=== PATIENT | male | born 1955 | race Caucasian/White ===

== ENCOUNTER 2024-08-31 17:16 | Inpatient (IN) | payer MEDICARE, MEDICAID ==
[~2024-08-31] VITALS: Ht 160 cm; Wt 75.7 kg
[~2024-08-31 17:16] MED LIST: ASPI-1406 PO; ATOR-2 PO; CHOL2000 PO; CLOP75TA33 PO; DICL100G58 TP; GLIP10TA17; HYDR25TA78 PO; ISOS60TA76 PO; OMEP20CA14 PO; PIOG30TA70; TAMS-11 PO
[2024-08-31] MEDS: FUROSEMIDE 40MG/4ML VIAL IV ONE (18:45)
[2024-08-31 19:30] LABS: BASOPHILS % 0.5 % (0.0-2.0); EOSINOPHILS % 0.5 % (0.0-5.0); HEMATOCRIT. 33.9 % (42.0-52.0); HEMOGLOBIN. 11.3 g/dL (14.0-18.0); LYMPHOCYTES % 14.2 % (20.0-50.0); MEAN CORPUSCULAR HEMOGLOBIN 30.7 pg (28.0-32.0); MEAN CORPUSCULAR HGB CONC 33.4 g/dL (31.0-37.0); MEAN PLATELET VOLUME 7.9 fl (7.4-10.4); MONOCYTES % 6.6 % (2.0-8.0); NEUTROPHILS % 78.2 % (40.0-76.0); PLATELET 211 x1000/uL (130-400); RED BLOOD CELL COUNT 3.69 mill/uL (4.7-6.1); RED CELL DISTRIBUTION WIDTH 12.9 % (11.6-14.6); WHITE BLOOD COUNT 7.5 x1000/uL (4.5-11.0)
[2024-08-31 19:40] LABS: CARBON DIOXIDE 23 mEq/L (21-32); CHLORIDE 101 mEq/L (98-107); POTASSIUM 4.3 mEq/L (3.5-5.1); SODIUM 134 mEq/L (136-145)
[2024-08-31 19:41] LABS: CALCIUM 8.9 mg/dL (8.7-10.4)
[2024-08-31 19:45] LABS: CREATININE 1.2 mg/dL (0.6-1.3)
[2024-08-31 19:46] LABS: GLUCOSE 173 mg/dL (70-105); TROPONIN I HIGH SENSITIVITY 11 ng/L (3.0-53); UREA NITROGEN BLOOD 17 mg/dL (9-23)
[2024-08-31 19:47] LABS: INR 1.2; PROTHROMBIN TIME 12.5 sec (9.6-11.0)
[2024-08-31 22:00] VITALS: BP 149/78; PULSE 97; RESP 20; TEMP 36.8
[2024-08-31] MEDS ORDERED: METF-416 PO (22:21)
[2024-08-31] MEDS ORDERED: DEXTROSE 50% WATER 50ML SYRINGE IV PRN (23:15)
[2024-09-01] VITALS: BP_SYST 117; BP_SYST 119; BP_DIAS 65; BP_DIAS 69; PULSE 84; PULSE 89; RESP 16; RESP 19; TEMP 36.2; TEMP 36.4; O2SAT 95; O2SAT 96
[2024-09-01] MEDS: BLOOD SUGAR DIAGNOSTIC STRIP TEST SCH (05:11)
[2024-09-01] MEDS: INSULIN LISPRO 100 UNITS/ML SUBCUT SCH (05:12)
[2024-09-01 06:37] LABS: BASOPHILS % 0.2 % (0.0-2.0); HEMATOCRIT. 29.8 % (42.0-52.0); HEMOGLOBIN. 10.2 g/dL (14.0-18.0); LYMPHOCYTES % 23.2 % (20.0-50.0); MEAN CORPUSCULAR HEMOGLOBIN 31.1 pg (28.0-32.0); MEAN CORPUSCULAR HGB CONC 34.4 g/dL (31.0-37.0); MEAN CORPUSCULAR VOLUME 90.6 fL (80.0-94.0); MEAN PLATELET VOLUME 8.1 fl (7.4-10.4); MONOCYTES % 7.9 % (2.0-8.0); NEUTROPHILS % 67.7 % (40.0-76.0); PLATELET 193 x1000/uL (130-400); RED BLOOD CELL COUNT 3.29 mill/uL (4.7-6.1); RED CELL DISTRIBUTION WIDTH 12.7 % (11.6-14.6); WHITE BLOOD COUNT 7.6 x1000/uL (4.5-11.0)
[2024-09-01 06:49] LABS: CARBON DIOXIDE 23 mEq/L (21-32); CHLORIDE 102 mEq/L (98-107); POTASSIUM 3.7 mEq/L (3.5-5.1); SODIUM 137 mEq/L (136-145)
[2024-09-01 06:50] LABS: CALCIUM 8.8 mg/dL (8.7-10.4)
[2024-09-01 06:54] LABS: CREATININE 1.1 mg/dL (0.6-1.3)
[2024-09-01 06:55] LABS: GLUCOSE 82 mg/dL (70-105); UREA NITROGEN BLOOD 17 mg/dL (9-23)
[2024-09-01 08:35] VITALS: BP 155/65; PULSE 85; RESP 17; TEMP 36.9; O2SAT 94
[2024-09-01 08:48] LABS: INR 1.2; PROTHROMBIN TIME 12.9 sec (9.6-11.0)
[2024-09-01] MEDS: ISOSORBIDE MONONITRATE 60MG TABLET SR 24HR PO SCH (09:11)
[2024-09-01] MEDS: PANTOPRAZOLE 40MG DR TABLET PO SCH (09:11)
[2024-09-01] MEDS: TAMSULOSIN HCL 0.4MG SR CAPSULE PO SCH (09:11)
[2024-09-01 12:36] VITALS: BP 130/69; PULSE 88; RESP 18; TEMP 37.2; O2SAT 96
[2024-09-01] MEDS: HYDRALAZINE HCL 25MG TABLET PO SCH (12:39)
[2024-09-01 16:00] VITALS: BP 133/66; PULSE 97; RESP 18; TEMP 37.7; O2SAT 94
[2024-09-01] MEDS ORDERED: IPRATROPIUM/ALBUTEROL 0.5-3(2.5)MG/3ML NEB HHN PRN (17:45)
[2024-09-01 20:00] VITALS: BP 149/61; PULSE 96; RESP 19; TEMP 36.2; O2SAT 96
[2024-09-01] MEDS: ATORVASTATIN CALCIUM 40MG TABLET PO SCH (21:06)
[2024-09-01] MEDS: HYDROCODONE/ACETAMINOPHEN 5/325MG TABLET PO PRN (21:15)
[2024-09-02] VITALS: BP 115/63; PULSE 85; RESP 20; TEMP 36.2; O2SAT 96
[2024-09-02 04:00] VITALS: BP 125/69; PULSE 86; RESP 16; TEMP 36.1; O2SAT 94
[2024-09-02 07:03] LABS: BASOPHILS % 0.3 % (0.0-2.0); EOSINOPHILS % 1.2 % (0.0-5.0); HEMATOCRIT. 29.5 % (42.0-52.0); HEMOGLOBIN. 10.1 g/dL (14.0-18.0); LYMPHOCYTES % 19.7 % (20.0-50.0); MEAN CORPUSCULAR HEMOGLOBIN 31.3 pg (28.0-32.0); MEAN CORPUSCULAR HGB CONC 34.2 g/dL (31.0-37.0); MEAN CORPUSCULAR VOLUME 91.6 fL (80.0-94.0); MONOCYTES % 7.5 % (2.0-8.0); NEUTROPHILS % 71.3 % (40.0-76.0); PLATELET 190 x1000/uL (130-400); RED BLOOD CELL COUNT 3.22 mill/uL (4.7-6.1); RED CELL DISTRIBUTION WIDTH 12.4 % (11.6-14.6); WHITE BLOOD COUNT 7.6 x1000/uL (4.5-11.0)
[2024-09-02 07:21] LABS: POTASSIUM 3.8 mEq/L (3.5-5.1)
[2024-09-02 07:22] LABS: CALCIUM 8.9 mg/dL (8.7-10.4)
[2024-09-02 07:26] LABS: CREATININE 1.2 mg/dL (0.6-1.3)
[2024-09-02 08:00] VITALS: BP 130/55; PULSE 89; RESP 18; TEMP 36.2; O2SAT 97
[2024-09-02 12:00] VITALS: BP 114/57; PULSE 89; RESP 14; TEMP 37.5; O2SAT 95
[2024-09-02] MEDS: GUAIFENESIN 200MG/10ML SUGAR FREE UDC PO PRN (13:27)
[2024-09-02 16:00] VITALS: PULSE 99; RESP 20; TEMP 36.2; O2SAT 94
[2024-09-02 20:00] VITALS: BP 120/57; PULSE 94; RESP 20; TEMP 36.4; O2SAT 95
[2024-09-03] VITALS: BP 145/75; PULSE 97; RESP 20; TEMP 36.3; O2SAT 95
[2024-09-03 04:00] VITALS: BP 134/65; PULSE 100; RESP 20; TEMP 36.5; O2SAT 95
[2024-09-03 08:00] VITALS: BP 126/64; PULSE 100; RESP 16; TEMP 37.6; O2SAT 95
[2024-09-03 12:00] VITALS: BP 116/68; PULSE 94; RESP 16; TEMP 37.1; O2SAT 96
[2024-09-03 16:00] VITALS: BP 141/76; PULSE 99; RESP 16; TEMP 37.9; O2SAT 97
[2024-09-03] MEDS ORDERED: REGADENOSON 0.4 MG/5 ML IV NR (16:30)
[2024-09-03 20:00] VITALS: BP 118/71; PULSE 99; RESP 19; TEMP 36.4; O2SAT 98
[2024-09-04] VITALS (7 sets, daily range): BP systolic 105–155; BP diastolic 58–89; PULSE 61–98; RESP 18–20; TEMP 36.2–36.9; O2SAT 93–100
[2024-09-04 07:12] LABS: CHLORIDE 98 mEq/L (98-107); POTASSIUM 4.1 mEq/L (3.5-5.1); SODIUM 131 mEq/L (136-145)
[2024-09-04 07:13] LABS: CALCIUM 8.6 mg/dL (8.7-10.4); CARBON DIOXIDE 22 mEq/L (21-32)
[2024-09-04 07:18] LABS: CREATININE 1.2 mg/dL (0.6-1.3); GLUCOSE 167 mg/dL (70-105); UREA NITROGEN BLOOD 22 mg/dL (9-23)
[2024-09-04 07:19] LABS: TROPONIN I HIGH SENSITIVITY 22 ng/L (3.0-53)
[2024-09-04] MEDS ORDERED: REGADENOSON 0.4 MG/5 ML IV ONE (07:40)
[2024-09-04 08:22] LABS: BASOPHILS % 0.2 % (0.0-2.0); EOSINOPHILS % 0.8 % (0.0-5.0); HEMATOCRIT. 29.7 % (42.0-52.0); HEMOGLOBIN. 10.1 g/dL (14.0-18.0); LYMPHOCYTES % 18.1 % (20.0-50.0); MEAN CORPUSCULAR HEMOGLOBIN 30.3 pg (28.0-32.0); MEAN CORPUSCULAR VOLUME 89.1 fL (80.0-94.0); MONOCYTES % 7.8 % (2.0-8.0); NEUTROPHILS % 73.1 % (40.0-76.0); PLATELET 217 x1000/uL (130-400); RED BLOOD CELL COUNT 3.33 mill/uL (4.7-6.1); RED CELL DISTRIBUTION WIDTH 12.1 % (11.6-14.6); WHITE BLOOD COUNT 7.5 x1000/uL (4.5-11.0)
[2024-09-04] MEDS: MAGNESIUM 2 G PREMIX 50 ML IV NR (12:38)
[2024-09-04] MEDS ORDERED: DEXTL PO (16:51)
[2024-09-04] MEDS ORDERED: METO25TA6 PO (16:51)
[2024-09-04] MEDS: METOPROLOL TARTRATE 25MG TABLET PO SCH (21:31)
[2024-09-05] VITALS: BP 146/73; PULSE 96; RESP 18; TEMP 36.4; O2SAT 98
[2024-09-05 04:00] VITALS: BP 149/57; PULSE 93; RESP 18; TEMP 36.5; O2SAT 98
[2024-09-05 08:00] VITALS: BP 140/77; PULSE 94; RESP 17; TEMP 36.6; O2SAT 95
[2024-09-05 08:40] VITALS: PULSE 94
== END 2024-09-05 09:45 | disposition home or self-care (01) | DRG 181 ==
LOC: ER 17:38 → EDBEDREQ 18:47 → 7WST 20:29 → EDBEDREQ 20:32 → EDBEDREQTM 20:32
PROVIDERS: ADMIT Internal Medicine; ATTEND Internal Medicine
DX: C34.92 Malignant neoplasm of unspecified part of left bronchus or lung (principal); J91.0 Malignant pleural effusion; I10 Essential (primary) hypertension; E78.5 Hyperlipidemia, unspecified; E11.22 Type 2 diabetes mellitus with diabetic chronic kidney disease; I25.10 Atherosclerotic heart disease of native coronary artery without angina pectoris; N40.0 Benign prostatic hyperplasia without lower urinary tract symptoms; Z79.82 Long term (current) use of aspirin; Z79.84 Long term (current) use of oral hypoglycemic drugs; Z79.899 Other long term (current) drug therapy; Z95.5 Presence of coronary angioplasty implant and graft
CPT/HCPCS: 36415; 71045; 71250; 76604; 80048; 82962; 83036; 83735; 83880; 84145; 84484; 85025; 85576; 93005; 94618; 99285; A4606; J1815; J1940; J2785; J3475

== ENCOUNTER 2024-11-30 11:39 | Inpatient (IN) | payer MEDICARE, MEDICAID ==
[~2024-11-30] VITALS: Ht 153.2 cm; Wt 70.3 kg
[~2024-11-30 11:39] MED LIST changes: +DEXTL PO; +LEVO250T74 MT; +METF-416 PO; +METO25TA6 PO; -TAMS-11 PO; +TAMS-54 PO
[2024-11-30 12:21] LABS: BASOPHILS % 0.2 % (0.0-2.0); EOSINOPHILS % 0.1 % (0.0-5.0); HEMATOCRIT. 26.3 % (42.0-52.0); HEMOGLOBIN. 9.1 g/dL (14.0-18.0); LYMPHOCYTES % 20.7 % (20.0-50.0); MEAN CORPUSCULAR HEMOGLOBIN 30.8 pg (28.0-32.0); MEAN CORPUSCULAR HGB CONC 34.4 g/dL (31.0-37.0); MEAN CORPUSCULAR VOLUME 89.4 fL (80.0-94.0); MEAN PLATELET VOLUME 6.9 fl (7.4-10.4); MONOCYTES % 9.4 % (2.0-8.0); NEUTROPHILS % 69.6 % (40.0-76.0); PLATELET 260 x1000/uL (130-400); RED BLOOD CELL COUNT 2.95 mill/uL (4.7-6.1); WHITE BLOOD COUNT 5.6 x1000/uL (4.5-11.0)
[2024-11-30 12:33] LABS: CHLORIDE 97 mEq/L (98-107); POTASSIUM 4.4 mEq/L (3.5-5.1); SODIUM 130 mEq/L (136-145)
[2024-11-30 12:34] LABS: CARBON DIOXIDE 20 mEq/L (21-32)
[2024-11-30 12:39] LABS: CREATININE 1.8 mg/dL (0.6-1.3); GLUCOSE 96 mg/dL (70-105); UREA NITROGEN BLOOD 51 mg/dL (9-23)
[2024-11-30 12:40] LABS: TROPONIN I HIGH SENSITIVITY 13 ng/L (3.0-53)
[2024-11-30] MEDS: ENOXAPARIN 60MG/0.6ML SYR SUBCUT SCH (14:05)
[2024-11-30 14:19] LABS: INR 1.2; PROTHROMBIN TIME 12.5 sec (9.6-11.0)
[2024-11-30 15:00] VITALS: BP 134/71; PULSE 90; RESP 16; TEMP 35.9; O2SAT 95
[2024-11-30] MEDS ORDERED: CLONIDINE 0.1MG TABLET PO PRN (16:00)
[2024-11-30] MEDS ORDERED: ENOXAPARIN 40MG/0.4ML SYR SUBCUT SCH (16:00)
[2024-11-30] MEDS ORDERED: MORPHINE SULFATE 2 MG/ML INJ (NOT FOR IM USE) IV PRN (16:00)
[2024-11-30] MEDS ORDERED: DEXTROSE 50% WATER 50ML SYRINGE IV PRN (16:15)
[2024-11-30 16:48] VITALS: BP 134/71; PULSE 90; RESP 16; TEMP 35.9; O2SAT 95
[2024-11-30] MEDS: FUROSEMIDE 40MG/4ML VIAL IVP SCH (17:44)
[2024-11-30] MEDS: BLOOD SUGAR DIAGNOSTIC STRIP TEST SCH (17:45)
[2024-11-30] MEDS: INSULIN LISPRO 100 UNITS/ML SUBCUT SCH (17:50)
[2024-11-30 18:38] LABS: TROPONIN I HIGH SENSITIVITY 14 ng/L (3.0-53)
[2024-11-30] MEDS ORDERED: PNEUMOCOCCAL 20-VAL CONJ-DIP CRM 0.5ML IM ONE (18:45)
[2024-11-30 20:00] VITALS: BP 130/58; PULSE 90; RESP 20; TEMP 36.3; O2SAT 95
[2024-11-30] MEDS: ATORVASTATIN CALCIUM 40MG TABLET PO SCH (20:51)
[2024-11-30] MEDS: METOPROLOL TARTRATE 25MG TABLET PO SCH (20:56)
[2024-11-30] MEDS: HYDRALAZINE HCL 25MG TABLET PO SCH (23:04)
[2024-12-01] VITALS: BP 117/63; PULSE 83; RESP 19; TEMP 36.3; O2SAT 97
[2024-12-01 04:00] VITALS: BP 117/63; PULSE 92; RESP 18; TEMP 36.3; O2SAT 97
[2024-12-01 07:13] LABS: BASOPHILS % 0.2 % (0.0-2.0); EOSINOPHILS % 0.3 % (0.0-5.0); HEMATOCRIT. 27.4 % (42.0-52.0); HEMOGLOBIN. 9.3 g/dL (14.0-18.0); LYMPHOCYTES % 17.3 % (20.0-50.0); MEAN CORPUSCULAR HEMOGLOBIN 30.4 pg (28.0-32.0); MEAN CORPUSCULAR VOLUME 89.3 fL (80.0-94.0); MEAN PLATELET VOLUME 6.9 fl (7.4-10.4); MONOCYTES % 10.7 % (2.0-8.0); NEUTROPHILS % 71.5 % (40.0-76.0); PLATELET 256 x1000/uL (130-400); RED BLOOD CELL COUNT 3.07 mill/uL (4.7-6.1); RED CELL DISTRIBUTION WIDTH 15.1 % (11.6-14.6)
[2024-12-01 07:23] LABS: POTASSIUM 4.2 mEq/L (3.5-5.1)
[2024-12-01 07:26] LABS: CALCIUM 9.2 mg/dL (8.7-10.4)
[2024-12-01 07:29] LABS: CREATININE 1.7 mg/dL (0.6-1.3)
[2024-12-01 08:00] VITALS: BP 118/60; PULSE 91; RESP 16; TEMP 36.3; O2SAT 97
[2024-12-01] MEDS: PANTOPRAZOLE SODIUM 40 MG/VIAL IV SCH (09:15)
[2024-12-01] MEDS: TAMSULOSIN HCL 0.4MG SR CAPSULE PO SCH (09:16)
[2024-12-01] MEDS: ISOSORBIDE MONONITRATE 60MG TABLET SR 24HR PO SCH (09:17)
[2024-12-01 12:00] VITALS: BP 111/58; PULSE 88; RESP 17; TEMP 36.3; O2SAT 98
[2024-12-01] MEDS ORDERED: ENOXAPARIN 60MG/0.6ML SYR SUBCUT SCH (14:00)
[2024-12-01 14:26] LABS: PROTEIN BODY FLUID 5.3 gm/dL
[2024-12-01 16:00] VITALS: BP 111/56; PULSE 90; RESP 13; TEMP 36.3; O2SAT 94
[2024-12-01 20:00] VITALS: BP 111/52; PULSE 97; RESP 19; TEMP 35.9; O2SAT 97
[2024-12-02] VITALS: BP 115/54; PULSE 94; RESP 19; TEMP 36.3; O2SAT 94
[2024-12-02 04:00] VITALS: BP 103/53; PULSE 98; RESP 19; TEMP 36.3; O2SAT 97
[2024-12-02 07:17] LABS: BASOPHILS % 0.1 % (0.0-2.0); EOSINOPHILS % 0.1 % (0.0-5.0); HEMATOCRIT. 27.4 % (42.0-52.0); HEMOGLOBIN. 9.3 g/dL (14.0-18.0); LYMPHOCYTES % 19.1 % (20.0-50.0); MEAN CORPUSCULAR HEMOGLOBIN 30.5 pg (28.0-32.0); MEAN CORPUSCULAR HGB CONC 34.1 g/dL (31.0-37.0); MEAN CORPUSCULAR VOLUME 89.6 fL (80.0-94.0); MEAN PLATELET VOLUME 6.9 fl (7.4-10.4); MONOCYTES % 10.9 % (2.0-8.0); NEUTROPHILS % 69.8 % (40.0-76.0); PLATELET 268 x1000/uL (130-400); RED BLOOD CELL COUNT 3.06 mill/uL (4.7-6.1)
[2024-12-02 07:23] LABS: POTASSIUM 4.1 mEq/L (3.5-5.1)
[2024-12-02 07:25] LABS: CALCIUM 8.6 mg/dL (8.7-10.4)
[2024-12-02 07:29] LABS: CREATININE 1.7 mg/dL (0.6-1.3)
[2024-12-02] MEDS ORDERED: SODIUM BICARBONATE 4.2% 2.5MEQ/5ML VIAL IV ONE (07:37)
[2024-12-02] MEDS ORDERED: LIDOCAINE HCL 1% 10 MG/ML 10ML VIAL ONE (07:38)
[2024-12-02 08:00] VITALS: BP 119/57; PULSE 99; RESP 14; TEMP 36.3; O2SAT 95
[2024-12-02 12:00] VITALS: BP 110/54; PULSE 82; RESP 15; TEMP 36.2; O2SAT 96
[2024-12-02 16:00] VITALS: BP_SYST 105; BP_DIAS 51; BP_DIAS 89; PULSE 89; PULSE 99; RESP 16; TEMP 36.3; TEMP 36.4; O2SAT 96; O2SAT 97
[2024-12-02 20:00] VITALS: BP 105/52; PULSE 95; RESP 18; TEMP 36.7; O2SAT 98
[2024-12-02] MEDS: ACETAMINOPHEN 325MG TABLET PO PRN (22:28)
[2024-12-03] VITALS: BP 107/57; PULSE 97; RESP 18; TEMP 36.8; O2SAT 98
[2024-12-03 04:00] VITALS: BP 103/52; PULSE 95; RESP 19; TEMP 36.6; O2SAT 98
[2024-12-03 08:00] VITALS: BP 94/50; PULSE 99; RESP 17; TEMP 36.3; O2SAT 98
[2024-12-03 08:25] LABS: BASOPHILS % 0.1 % (0.0-2.0); EOSINOPHILS % 0.4 % (0.0-5.0); HEMATOCRIT. 26.3 % (42.0-52.0); HEMOGLOBIN. 8.9 g/dL (14.0-18.0); LYMPHOCYTES % 21.9 % (20.0-50.0); MEAN CORPUSCULAR HEMOGLOBIN 30.4 pg (28.0-32.0); MEAN CORPUSCULAR HGB CONC 33.8 g/dL (31.0-37.0); MEAN PLATELET VOLUME 7.1 fl (7.4-10.4); MONOCYTES % 12.1 % (2.0-8.0); NEUTROPHILS % 65.5 % (40.0-76.0); PLATELET 251 x1000/uL (130-400); RED BLOOD CELL COUNT 2.92 mill/uL (4.7-6.1); RED CELL DISTRIBUTION WIDTH 15.2 % (11.6-14.6); WHITE BLOOD COUNT 7.1 x1000/uL (4.5-11.0)
[2024-12-03 09:36] LABS: POTASSIUM 4.1 mEq/L (3.5-5.1)
[2024-12-03 09:37] LABS: CALCIUM 9.1 mg/dL (8.7-10.4)
[2024-12-03 09:41] LABS: CREATININE 1.8 mg/dL (0.6-1.3)
[2024-12-03] MEDS: APIXABAN 5 MG TABLET PO SCH (11:32)
[2024-12-03 12:00] VITALS: BP 124/62; PULSE 99; RESP 17; TEMP 36.2; O2SAT 95
[2024-12-03 16:00] VITALS: BP 102/57; PULSE 98; RESP 17; TEMP 36.8; O2SAT 97
[2024-12-03 20:00] VITALS: BP 117/58; PULSE 104; RESP 18; TEMP 36.4; O2SAT 98
[2024-12-04] VITALS: BP 96/49; PULSE 87; RESP 18; TEMP 36.2; O2SAT 99
[2024-12-04 04:00] VITALS: BP 98/80; PULSE 96; RESP 18; TEMP 36.8; O2SAT 98
[2024-12-04 08:00] VITALS: BP 114/60; PULSE 95; RESP 18; TEMP 36.1; O2SAT 97
[2024-12-04 12:00] VITALS: BP 95/52; PULSE 92; RESP 18; TEMP 36.4; O2SAT 98
[2024-12-04 16:00] VITALS: BP 110/58; PULSE 93; RESP 18; TEMP 36.3; O2SAT 98
[2024-12-04 20:00] VITALS: BP 105/54; PULSE 93; RESP 19; TEMP 36.5; O2SAT 97
[2024-12-05] VITALS: BP 93/47; PULSE 100; RESP 18; TEMP 36.4; O2SAT 97
[2024-12-05] MEDS: HYDROCODONE/ACETAMINOPHEN 5/325MG TABLET PO PRN (03:36)
[2024-12-05 04:00] VITALS: BP 101/56; PULSE 103; RESP 18; TEMP 36.2; O2SAT 98
[2024-12-05 08:00] VITALS: BP 102/48; PULSE 91; RESP 19; TEMP 36.6; O2SAT 98
[2024-12-05 12:00] VITALS: BP 90/45; PULSE 95; RESP 18; TEMP 36.4; O2SAT 97
[2024-12-05 16:00] VITALS: BP 131/65; PULSE 90; RESP 19; TEMP 36.6; O2SAT 97
[2024-12-05 20:00] VITALS: BP 101/51; PULSE 99; RESP 19; TEMP 37.2; O2SAT 98
[2024-12-06] VITALS: BP 99/48; PULSE 96; RESP 18; TEMP 36.7; O2SAT 98
[2024-12-06 04:00] VITALS: BP 109/58; PULSE 95; RESP 19; TEMP 37.1; O2SAT 98
[2024-12-06 12:00] VITALS: BP 125/57; PULSE 92; RESP 18; TEMP 36.3; O2SAT 99
[2024-12-06 16:00] VITALS: BP 103/56; PULSE 94; RESP 18; TEMP 36.6; O2SAT 98
[2024-12-06 20:00] VITALS: BP 108/57; PULSE 95; RESP 18; TEMP 36.1; O2SAT 97
[2024-12-07] VITALS: BP 99/47; PULSE 84; RESP 18; TEMP 36.1; O2SAT 97
[2024-12-07 04:02] VITALS: BP 101/58; PULSE 86; RESP 18; TEMP 36.6; O2SAT 97
[2024-12-07 08:00] VITALS: BP 99/53; PULSE 94; RESP 15; TEMP 36.4; O2SAT 99
[2024-12-07 12:00] VITALS: BP 100/58; PULSE 91; RESP 18; TEMP 36.5; O2SAT 97
[2024-12-07] MEDS: ONDANSETRON HCL 4MG/2ML INJ IV PRN (12:20)
[2024-12-07 16:00] VITALS: BP 101/70; PULSE 90; RESP 20; TEMP 36.6; O2SAT 98
[2024-12-07 20:43] VITALS: BP 105/51; PULSE 91; RESP 19; TEMP 36.3; O2SAT 96
[2024-12-08] VITALS: BP 103/55; PULSE 97; RESP 17; TEMP 36.7; O2SAT 95
[2024-12-08 04:00] VITALS: BP 106/52; PULSE 94; RESP 19; TEMP 37; O2SAT 92
[2024-12-08 08:00] VITALS: BP_SYST 109; BP_DIAS 47; BP_DIAS 51; PULSE 67; PULSE 74; RESP 16; RESP 18; TEMP 35.9; TEMP 36.4; O2SAT 94; O2SAT 96
[2024-12-08 12:00] VITALS: BP 105/54; PULSE 71; RESP 18; TEMP 36.1; O2SAT 96
[2024-12-08 16:00] VITALS: BP 106/52; PULSE 70; RESP 17; TEMP 36.1; O2SAT 97
[2024-12-08 20:00] VITALS: BP 107/48; PULSE 83; RESP 18; TEMP 36.2; O2SAT 99
[2024-12-09] VITALS: BP 106/54; PULSE 84; RESP 18; TEMP 36.2; O2SAT 96
[2024-12-09] MEDS: ALPRAZOLAM 0.25 MG TABLET PO PRN (00:57)
[2024-12-09 04:00] VITALS: BP 106/60; PULSE 82; RESP 18; TEMP 36.3; O2SAT 97
[2024-12-09 08:00] VITALS: BP 108/62; PULSE 88; RESP 16; TEMP 36.6; O2SAT 98
[2024-12-09 12:00] VITALS: BP 98/60; PULSE 80; RESP 18; TEMP 36.5; O2SAT 99
[2024-12-09] MEDS ORDERED: HYDROCODONE/ACETAMINOPHEN 5/325MG TABLET PO PRN (12:30)
[2024-12-09] MEDS: DOCUSATE SODIUM 250MG CAPSULE PO SCH (13:46)
[2024-12-09 20:00] VITALS: BP 119/68; PULSE 97; RESP 22; TEMP 35.7; O2SAT 97
[2024-12-10] VITALS: BP 95/49; PULSE 88; RESP 18; TEMP 35.4; O2SAT 98
[2024-12-10 04:00] VITALS: BP 90/42; PULSE 94; RESP 20; TEMP 35.6; O2SAT 95
[2024-12-10 08:00] VITALS: BP 115/58; PULSE 109; RESP 20; TEMP 36.4; O2SAT 96
[2024-12-10 12:00] VITALS: BP 126/60; PULSE 90; RESP 19; TEMP 36.6; O2SAT 97
[2024-12-10] MEDS: APIXABAN 5 MG TABLET PO SCH (16:07)
[2024-12-10 16:19] VITALS: BP 108/57; PULSE 93; RESP 20; TEMP 36.6; O2SAT 98
[2024-12-10 18:24] LABS: BASOPHILS % 0.4 % (0.0-2.0); HEMATOCRIT. 26.8 % (42.0-52.0); LYMPHOCYTES % 15.3 % (20.0-50.0); MEAN CORPUSCULAR HEMOGLOBIN 30.4 pg (28.0-32.0); MEAN CORPUSCULAR HGB CONC 33.5 g/dL (31.0-37.0); MEAN CORPUSCULAR VOLUME 90.9 fL (80.0-94.0); MONOCYTES % 8.1 % (2.0-8.0); NEUTROPHILS % 76.2 % (40.0-76.0); PLATELET 312 x1000/uL (130-400); RED BLOOD CELL COUNT 2.95 mill/uL (4.7-6.1); RED CELL DISTRIBUTION WIDTH 15.7 % (11.6-14.6); WHITE BLOOD COUNT 8.1 x1000/uL (4.5-11.0)
[2024-12-10 18:31] LABS: POTASSIUM 5.1 mEq/L (3.5-5.1)
[2024-12-10 18:32] LABS: CALCIUM 9.1 mg/dL (8.7-10.4)
[2024-12-10 18:36] LABS: CREATININE 1.9 mg/dL (0.6-1.3)
[2024-12-10 20:00] VITALS: BP 120/52; PULSE 101; RESP 20; TEMP 36.3; O2SAT 97
[2024-12-11] VITALS: BP 136/68; PULSE 83; RESP 20; TEMP 35.8; O2SAT 96
[2024-12-11 04:00] VITALS: BP 100/51; PULSE 75; RESP 19; TEMP 36.6; O2SAT 96
[2024-12-11 08:00] VITALS: BP 106/52; PULSE 95; RESP 13; TEMP 36.2; O2SAT 95
[2024-12-11 12:00] VITALS: BP 108/59; PULSE 92; RESP 14; TEMP 36.2; O2SAT 95
[2024-12-11 16:00] VITALS: BP 99/47; PULSE 94; RESP 14; TEMP 36.2; O2SAT 95
[2024-12-11 20:00] VITALS: BP 119/58; PULSE 95; RESP 18; TEMP 36.1; O2SAT 98
[2024-12-12] VITALS: BP 100/53; PULSE 90; RESP 16; TEMP 36.1; O2SAT 96
[2024-12-12 04:00] VITALS: BP 106/54; PULSE 90; RESP 16; TEMP 35.9; O2SAT 97
[2024-12-12 08:00] VITALS: BP 106/58; PULSE 90; RESP 18; TEMP 35.5; O2SAT 98
[2024-12-12 12:00] VITALS: BP 103/39; PULSE 97; RESP 18; TEMP 36.1; O2SAT 98
[2024-12-12 16:00] VITALS: BP 109/53; PULSE 90; RESP 18; TEMP 36.1; O2SAT 98
[2024-12-12 20:00] VITALS: BP 103/48; PULSE 94; RESP 18; TEMP 36.1; O2SAT 96
[2024-12-13] VITALS: BP 100/53; PULSE 96; RESP 18; TEMP 36.2; O2SAT 96
[2024-12-13 04:00] VITALS: BP 113/55; PULSE 95; RESP 18; TEMP 36.2; O2SAT 98
[2024-12-13 08:00] VITALS: BP 112/56; PULSE 98; RESP 18; TEMP 36.4; O2SAT 98
[2024-12-13 12:00] VITALS: BP 124/83; PULSE 98; RESP 18; TEMP 36.6; O2SAT 100
[2024-12-13] MEDS ORDERED: APIX5TAB PO (12:40)
[2024-12-13] MEDS: PNEUMOCOCCAL 20-VAL CONJ-DIP CRM 0.5ML IM ONE (14:15)
[2024-12-13 15:53] VITALS: BP 113/50; PULSE 93; TEMP 97.8; O2SAT 98
[2024-12-13 16:00] VITALS: BP 113/50; PULSE 93; RESP 18; TEMP 36.6; O2SAT 98
== END 2024-12-13 16:35 | DRG 823 ==
LOC: ER 11:39 → 6WST 13:05 → EDBEDREQ 13:09 → EDBEDREQTM 13:09 → ENRESERV 15:12
PROVIDERS: ADMIT Internal Medicine; ATTEND Internal Medicine
PROC: 0W993ZZ Drainage of Right Pleural Cavity, Percutaneous Approach (ICD-10-PCS; 2024-12-01)
PROC: 07BJ3ZX Excision of Left Inguinal Lymphatic, Percutaneous Approach, Diagnostic (ICD-10-PCS; principal; 2024-12-02)
DX: C85.85 Other specified types of non-Hodgkin lymphoma, lymph nodes of inguinal region and lower limb (principal); J96.21 Acute and chronic respiratory failure with hypoxia; I13.0 Hypertensive heart and chronic kidney disease with heart failure and stage 1 through stage 4 chronic kidney disease, or unspecified chronic kidney disease; E87.1 Hypo-osmolality and hyponatremia; I82.412 Acute embolism and thrombosis of left femoral vein; J91.8 Pleural effusion in other conditions classified elsewhere; I50.32 Chronic diastolic (congestive) heart failure; N28.89 Other specified disorders of kidney and ureter; N18.9 Chronic kidney disease, unspecified; E11.22 Type 2 diabetes mellitus with diabetic chronic kidney disease; R74.02 Elevation of levels of lactic acid dehydrogenase [LDH]; R59.1 Generalized enlarged lymph nodes; E78.00 Pure hypercholesterolemia, unspecified; I25.10 Atherosclerotic heart disease of native coronary artery without angina pectoris; Z87.01 Personal history of pneumonia (recurrent); F41.9 Anxiety disorder, unspecified; R59.0 Localized enlarged lymph nodes
CPT/HCPCS: 32555; 36415; 38505; 71045; 71250; 74176; 76857; 76942; 78580; 80048; 82962; 83036; 83615; 83880; 84484; 85025; 87116; 88108; 88305; 88312; 90732; 93005; 93970; 97116; 97162; 97166; 99285; J1650; J1815; J1940; J2003; J2405; J2470; J3490